=== PATIENT | female | born 1985 | race Caucasian/White ===

== ENCOUNTER → 2016-10-15 | Outpatient (CLI) | payer OTHER | LOC: OD 12:53 | PROVIDERS: ATTEND Urology | DX: N39.0 Urinary tract infection, site not specified (principal) | CPT/HCPCS: 87086 ==

== ENCOUNTER → 2016-11-12 | Outpatient (CLI) | payer OTHER | LOC: RAD 15:27 | PROVIDERS: ATTEND Urology | DX: R31.0 Gross hematuria (principal) | CPT/HCPCS: 74178; 82565 ==

== ENCOUNTER 2020-06-03 21:04 | Emergency (ER) | payer SELFPAY ==
[2020-06-03] MEDS ORDERED: KETOROLAC TROMETHAMINE INJ/PF 30 MG/1 ML SDV IV ONE (21:58)
[2020-06-03] MEDS ORDERED: ONDANSETRON HCL INJ/PF 4 MG/2 ML SDV IV ONE (21:58)
[2020-06-03] MEDS ORDERED: MORPHINE SULFATE 10 MG/ML INJ IV ONE (22:00)
[2020-06-03] MEDS ORDERED: NORMAL SALINE 1000 ML 1,000 ML IV ONE (22:00)
--- NOTE | 2020-06-03 22:00 | ER Document Report ---
ED Medical Screen (RME) - General Chief Complaint: Flank Pain Stated Complaint: VOMITING,POSSIBLE KIDNEY STONES Time Seen by Provider: 06/03/20 21:57 Primary Care Provider: PHILLY HOYT MD [Primary Care Provider] - Follow up as needed Mode of Arrival: Ambulatory Information source: Patient Notes: 34-year-old female patient presented emergency department chief complaint of left flank pain with nausea and vomiting. She denies any fever or chills. She states she has a history of kidney stones, states this feels similar. The pain started a few days ago and was severe then, it subsided and now has returned. She has hunched over, appears to be in acute pain, tearful. I have greeted and performed a rapid initial assessment of this patient. A comprehensive ED assessment and evaluation of the patient, analysis of test results and completion of the medical decision making process will be conducted by additional ED providers. I have specifically instructed the patient or family members with the patient to immediately return to any nursing staff should anything change in the patient's condition or with their chief complaint. TRAVEL OUTSIDE OF THE [place] IN LAST 30 DAYS: No Physical Exam - Vital signs Vitals: Temp Pulse Resp BP Pulse Ox 97.4 F 56 L 22 H 141/90 H 100 06/03/20 21:14 06/03/20 21:14 06/03/20 21:14 06/03/20 21:14 06/03/20 21:14 Course - Vital Signs Vital signs: Temp Pulse Resp BP Pulse Ox 97.4 F 56 L 22 H 141/90 H 100 06/03/20 21:14 06/03/20 21:14 06/03/20 21:14 06/03/20 21:14 06/03/20 21:14 Doctor's Discharge - Discharge Referrals: PHILLY HOYT MD [Primary Care Provider] - Follow up as needed
[2020-06-03 22:35] LABS: ABSOLUTE LYMPHOCYTES (AUTO) 2.1 10^3/uL (0.5-4.7); ABSOLUTE MONOCYTES (AUTO) 0.8 10^3/uL (0.1-1.4); ABSOLUTE NEUT (AUTO) 7.1 10^3/uL (1.7-8.2); BASOPHILS % (AUTO) 0.4 % (0-2); EOSINOPHILS % (AUTO) 0.3 % (0-6); HEMATOCRIT 37.8 % (36.0-47.0); HEMOGLOBIN 12.8 g/dL (12.0-15.5); LYMPHOCYTES % (AUTO) 20.5 % (13-45); MEAN CORPUSCULAR HEMOGLOBIN 31.6 pg (27.0-33.4); MEAN CORPUSCULAR HGB CONC 33.9 g/dL (32.0-36.0); MEAN CORPUSCULAR VOLUME 93 fl (80-97); MONOCYTES % (AUTO) 8.1 % (3-13); PLATELET COUNT 194 10^3/uL (150-450); RED BLOOD COUNT 4.06 10^6/uL (3.72-5.28); RED CELL DISTRIBUTION WIDTH 12.6 % (11.5-14.0); SEGMENTED NEUTROPHILS % (AUTO) 70.7 % (42-78); TOTAL CELLS COUNTED % (AUTO) 100 %
[2020-06-03 22:58] LABS: ALBUMIN 4.5 g/dL (3.5-5.0); ALKALINE PHOSPHATASE 65 U/L (38-126); ANION GAP 11 (5-19); ASPARTATE AMINO TRANSFERASE 21 U/L (14-36); BILIRUBIN,DIRECT 0.3 mg/dL (0.0-0.4); BILIRUBIN,TOTAL 0.7 mg/dL (0.2-1.3); BLOOD UREA NITROGEN 16 mg/dL (7-20); CALCIUM 9.1 mg/dL (8.4-10.2); CARBON DIOXIDE 26 mmol/L (22-30); CHLORIDE 101 mmol/L (98-107); GLUCOSE 102 mg/dL (75-110); POTASSIUM 3.5 mmol/L (3.6-5.0); TOTAL PROTEIN 7.3 g/dL (6.3-8.2)
[2020-06-03 23:11] LABS: APPEARANCE,URINE CLOUDY; BILIRUBIN,URINE NEGATIVE (NEGATIVE); COLOR,URINE YELLOW; GLUCOSE, URINE NEGATIVE (NEGATIVE); KETONES,URINE 20 mg/dL (NEGATIVE); LEUKOCYTE ESTERASE,URINE TRACE (NEGATIVE); NITRITE,URINE NEGATIVE (NEGATIVE); PROTEIN,URINE 100 mg/dL (NEGATIVE); URINE SPECIFIC GRAVITY 1.028; UROBILINOGEN,URINE NEGATIVE mg/dL (<2.0)
--- NOTE | 2020-06-03 23:17 | ER Document Report ---
ED General - General Chief Complaint: Flank Pain Stated Complaint: VOMITING,POSSIBLE KIDNEY STONES Time Seen by Provider: 06/03/20 21:57 Primary Care Provider: PHILLY HOYT MD [ANTWON RAINEY] - Follow up as needed Mode of Arrival: Ambulatory Notes: Patient is a 34 y/o female with a history of kidney stones, presents with LLQ abdominal pain that began 3-4 days ago. Patient states her pain fluctuated on onset but became constant and worsened in the last couple of hours. She reports hematuria, nausea, vomiting, and diaphoresis but denies fever, chills, and dysuria. Patient has not taken any medication for relief. Patient's last kidney stone was in April 2019. TRAVEL OUTSIDE OF THE [place] IN LAST 30 DAYS: No - Related Data Allergies/Adverse Reactions: No Known Allergies Allergy (Unverified 06/03/20 22:32) Past Medical History - General Information source: Patient - Social History Smoking Status: Never Smoker Chew tobacco use (# tins/day): No Frequency of alcohol use: Rare Drug Abuse: None Family History: Reviewed & Not Pertinent Renal/ Medical History: Reports: Hx Kidney Stones Review of Systems - Review of Systems Notes: REVIEW OF SYSTEMS: CONSTITUTIONAL : Reports sweats. Denies fever, chills. Denies recent illness. CARDIOVASCULAR: Denies chest pain. RESPIRATORY: Denies cough, cold, or chest congestion. Denies shortness of breath, difficulty breathing, or wheezing. GASTROINTESTINAL: Reports abdominal pain, nausea, vomiting. Denies diarrhea. Denies constipation. GENITOURINARY: Reports blood in urine. Denies difficulty urinating, painful urination, burning, frequency. FEMALE GENITOURINARY: Denies vaginal bleeding, abnormal or irregular periods. MUSCULOSKELETAL: Denies neck or back pain or joint pain or swelling. SKIN: Denies rash or skin lesions. NEUROLOGICAL: Denies altered mental status or loss of consciousness. Denies headache. Denies weakness or paralysis or loss of use of either side. Denies problems with gait or speech. Denies sensory or motor loss. PSYCHIATRIC: Denies anxiety or stress or depression. ALL OTHER SYSTEMS REVIEWED AND NEGATIVE. Physical Exam - Vital signs Vitals: Temp Pulse Resp BP Pulse Ox 97.4 F 56 L 22 H 141/90 H 100 06/03/20 21:14 06/03/20 21:14 06/03/20 21:14 06/03/20 21:14 06/03/20 21:14 - Notes Notes: VITAL SIGNS: Within normal limits. GENERAL: No acute distress, non-toxic appearance. HEAD: Normal with no signs of head trauma. EYES: PERRLA, EOMI, conjunctiva normal, no discharge. EARS: Hearing grossly intact. NOSE: Normal. MOUTH: Moist mucous membranes. NECK: Normal range of motion, no tenderness, supple, no lymphadenopathy, No adenopathy, no JVD. CHEST: Clear breath sounds bilaterally. No wheezes, rales, or rhonchi. CARDIAC: Regular rate and rhythm. S1 and S2, without murmurs, gallops, or rubs. VASCULAR: No Edema. Peripheral pulses normal and equal in all extremities. ABDOMEN: Normal and soft with no tenderness, no masses or pulsatile masses. GASTROINTESTINAL: Bowel sounds normal. No CVA tenderness. GENITOURINARY: Mild left pelvis tenderness. MUSCULOSKELETAL: Good range of motion of all major joints. Extremities without clubbing, cyanosis or edema. NEUROLOGICAL: Alert and oriented x 3. No focal sensory or strength deficits. Speech normal. Follows commands appropriately. PSYCHIATRIC: Normal Affect, judgement and mood. SKIN: Normal appearance with no rashes or lesions. Course - Re-evaluation Re-evalutation: UA shows trace leukocytes esterase and 14 WBCs, but nitrites negative and 8 squamous epithelial cells. Minimal concern for infected stone, urine culture ordered. CT consisitent with 3mm kidney stone and moderate left hydronephrosis. Discussed CT results in detail with patient. In regard to the mild colon wall thickening, patient reports that she has been diagnosed with IBS and has a social media content manager. Repeat morphine given in ED for pain. Prescriptions for morphine and zofran given to patient. Will discharge home with follow up with urology. Abdomen/Pelvis CT 06/03/20 22:00 IMPRESSION: 1. There is a 0.3 cm obstructing calculus in the distal left ureter producing moderate left hydroureter and hydronephrosis. 2. Punctate nonobstructing left nephrolithiasis. 3. Mild wall thickening of the colon with submucosal fatty infiltration. This could be seen with chronic inflammatory colitis. This exam was performed according to our departmental dose-optimization program, which includes automated exposure control, adjustment of the mA and/or kV according to patient size and/or use of iterative reconstruction technique. 06/04/20 01:51 06/04/20 01:52 - Vital Signs Vital signs: Temp Pulse Resp BP Pulse Ox 97.4 F 56 L 22 H 141/90 H 100 06/03/20 21:14 06/03/20 21:14 06/03/20 21:14 06/03/20 21:14 06/03/20 21:14 - Laboratory Result Diagrams: 06/03/20 22:27 06/03/20 22:27 Laboratory results interpreted by me: 06/03/20 06/03/20 22:27 22:41 Potassium 3.5 L Urine Protein 100 H Urine Ketones 20 H Urine Blood LARGE H Ur Leukocyte Esterase TRACE H Discharge - Discharge Clinical Impression: Kidney stone on left side, Hydronephrosis concurrent with and due to calculi of kidney and ureter Condition: Stable Disposition: HOME, SELF-CARE Additional Instructions: Kidney Stone You are passing or have passed a kidney stone. These stones are usually due to increased calcium or uric acid concentrations in your urine. Stones within the kidney itself are not painful. The pain occurs as the stone leaves the kidney to pass down the long tube, called the ureter, leading to the bladder. If the stone is small, it will usually pass by itself. Most patients can pass the stone at home. You will usually receive medications for pain, nausea or vomiting, and sometimes a medication to assist in passing the kidney stone. However, if the pain is very severe or if vomiting prevents you from taking oral pain medications, you may need to return for further treatment. Drink three or four quarts of fluids per day. You will be given pain medication (if needed) and urine strainers. Strain all your urine to see if the stone passes. If your doctor has asked you to bring the stone in for analysis, return with the stone once it has passed. Return if pain or vomiting become severe, if you develop a high fever, if you are unable to pass your urine, or if other unusual symptoms occur. Prescriptions: Ondansetron [Zofran Odt 4 mg Tablet] 1 - 2 tab PO Q4HP PRN #15 tab.rapdis PRN Reason: Morphine Sulfate [Morphine Ir 15 Mg Tablet] 15 mg PO TID PRN #12 tablet PRN Reason: Referrals: FIONA PEREIRA MD [NO LOCAL MD] - Follow up as needed
--- NOTE | 2020-06-03 23:58 | RADIOLOGY REPORT (SQ) ---
EXAM DESCRIPTION: CT ABDOMEN PELVIS WITHOUT IV CONTRAST COMPLETED DATE/TME: 06/03/2020 22:00 CLINICAL HISTORY: L flank pain COMPARISON: 11/12/2016 TECHNIQUE: CT of the abdomen and pelvis without IV contrast. Evaluation of the solid organs and vasculature is suboptimal due to lack of IV contrast. FINDINGS: Lung Bases: The visualized lung bases are clear. Bones: No destructive bone lesions identified. Abdomen: Liver: The liver has normal size and density. Gallbladder: No calcified gallstones. Spleen, Pancreas, and Adrenal Glands: The spleen, pancreas, and adrenal glands are unremarkable. Kidneys: There is a 0.3 cm obstructing calculus in the distal left ureter producing moderate left hydroureter and hydronephrosis. Left perinephric fat stranding. Punctate nonobstructing superior pole left nephrolithiasis. No right-sided hydronephrosis. Vasculature: The aorta and IVC have normal caliber and position. Stomach: The stomach and duodenum have normal course. Other: No free intraperitoneal air. No free fluid or lymphadenopathy. Pelvis: Bladder: Urinary bladder is unremarkable. Bowel: No dilated loops of large or small bowel. Mild wall thickening with submucosal fatty infiltration of the colon . Appendix: Normal appendix. Pelvis: Uterus is not enlarged. IMPRESSION: 1. There is a 0.3 cm obstructing calculus in the distal left ureter producing moderate left hydroureter and hydronephrosis. 2. Punctate nonobstructing left nephrolithiasis. 3. Mild wall thickening of the colon with submucosal fatty infiltration. This could be seen with chronic inflammatory colitis. This exam was performed according to our departmental dose-optimization program, which includes automated exposure control, adjustment of the mA and/or kV according to patient size and/or use of iterative reconstruction technique.
[2020-06-04] MEDS ORDERED: MORPHINE SULFATE 10 MG/ML INJ IV ONE (01:25)
[2020-06-04 02:25] VITALS: BP 96/61
== END 2020-06-04 02:25 | disposition home or self-care (01) ==
LOC: ER 21:04
DX: N13.2 Hydronephrosis with renal and ureteral calculous obstruction (principal); R10.9 Unspecified abdominal pain; R10.32 Left lower quadrant pain; R31.9 Hematuria, unspecified; R11.2 Nausea with vomiting, unspecified; R61 Generalized hyperhidrosis
CPT/HCPCS: 96376; 99285; 96361; 96374; 96375; 36415; 87086; 83690; 84703; 85025; 80053; 81001; 74176; J1885; J2270 ×2; J2405; J7030